=== PATIENT | female | born 1970 | race Caucasian/White ===

== ENCOUNTER 2018-03-28 14:47 | Emergency (ER) | payer OTHER ==
[2018-03-28 15:11] VITALS: BMI 23.6
--- NOTE | 2018-03-28 16:08 | PDOC ---
Attending Attestation - Resident Resident Name: Campbell Pierson - ED Attending Attestation I have performed the following: I have examined & evaluated the patient, The case was reviewed & discussed with the resident, I agree w/resident's findings & plan, Exceptions are as noted - Physicial Exam PE: 03/28/18 17:42 Abd: soft nontender, no cva tenderness : apprx 2x3cm mass on R posterior vaginal introitus (cw bartholins cyst) - Medical Decision Making 03/28/18 17:42 03/28/18 16:09 47y F presnts with worsening pain in the pelvic region endorses fever subjectively denies n/v, +amy when walking, sitting, and with urinating on exam pt has a large mass onthe R posterior vaignal area c/w barthlins cyst bartholins cyst drained and alex ring placed under my direct supervision by dr. Pierson will have pt fu with lacing cutter <Jules Henderson - Last Filed: 03/28/18 17:43> - HPI HPI: 03/28/18 17:54 47y F with a hx of bipolar and bartholin cysts around her body who presents to the emergency department for evaluation of worsening pelvic pain and growing mass in vagina since Wednesday. She reports associated symptoms of subjective fevers, chills, and difficulty with ambulation secondary to pain. Endorses having a mass there in the past but was other sharma asymptmatic so was never formally treated. Denies nausea and vomiting. She reports dysuria, describing it as a throbbing pain. Denies vaginal discharge, bleeding, frequency, abdominal pain, constipation/diarrhea. - Medical Decision Making Documentation prepared by Victor Manuel Whittington, acting as medical physics professor for Jules Henderson MD. <Victor Manuel Whittington - Last Filed: 03/28/18 17:55>
--- NOTE | 2018-03-28 17:08 | PDOC ---
History of Present Illness - General Chief Complaint: Pain Stated Complaint: SICK Time Seen by Provider: 03/28/18 15:32 History Source: Patient Exam Limitations: No Limitations - History of Present Illness Initial Comments: 03/28/18 17:04 Patient is 47F with history of bipolar, bartholin cysts here today complaining of a mass in her vagina that started several days ago. Complains of associated subjective fevers and chills. Denies nausea, vomiting. Denies vaginal discharge , states that it is difficult to urinate because of the mass. Denies abdominal pain. Denies constipation/diarrhea. Patient states that she is concerned that she has a tumor. Past History - Past Medical History Allergies/Adverse Reactions: Allergies Allergy/AdvReac Type Severity Reaction Status Date / Time No Known Allergies Allergy Verified 03/28/18 15:08 Home Medications: Ambulatory Orders Amitriptyline HCl [Elavil -] 50 mg PO BID 03/28/18 Clonazepam [Klonopin] 1 mg PO HS 03/28/18 Cancer: Yes COPD: No Psychiatric Problems: Yes - Suicide/Smoking/Psychosocial Hx Smoking History: Current every day smoker Information on smoking cessation initiated: No Review of Systems - Review of Systems Comments:: 03/28/18 17:06 GENERAL/CONSTITUTIONAL: No fever or chills. No weakness. HEAD, EYES, EARS, NOSE AND THROAT: No change in vision. No sore throat. CARDIOVASCULAR: No chest pain or shortness of breath RESPIRATORY: No cough, wheezing, or hemoptysis. GASTROINTESTINAL: No nausea, vomiting, diarrhea or constipation. GENITOURINARY: No dysuria, frequency. MUSCULOSKELETAL: No joint or muscle swelling or pain. No neck or back pain. SKIN: No rash NEUROLOGIC: No headache, vertigo, loss of consciousness, or change in strength/ sensation. ALLERGIC/IMMUNOLOGIC: No hives or skin allergy. *Physical Exam - Vital Signs Last Vital Signs Temp Pulse Resp BP Pulse Ox 97.7 F 110 H 20 110/84 99 03/28/18 15:09 03/28/18 15:09 03/28/18 15:09 03/28/18 15:09 03/28/18 15:09 - Physical Exam Comments: 03/28/18 17:07 GENERAL: Awake, alert, and fully oriented, in no acute distress PELVIC: R sided bartholin cyst, no cmt, no adnexal tenderness HEAD: No signs of trauma, normocephalic, atraumatic EYES: PERRLA, EOMI, sclera anicteric, conjunctiva clear ENT: Auricles normal inspection, hearing grossly normal, nares patent, oropharynx clear without exudates. Moist mucosa NECK: Normal ROM, supple, no lymphadenopathy, JVD, or masses LUNGS: No distress, speaks full sentences, clear to auscultation bilaterally HEART: Regular rate and rhythm, normal S1 and S2, no murmurs, rubs or gallops, peripheral pulses normal and equal bilaterally. ABDOMEN: Soft, nontender, normoactive bowel sounds. No guarding, no rebound. No masses EXTREMITIES: Normal inspection, Normal range of motion, no edema. No clubbing or cyanosis. NEUROLOGICAL: Cranial nerves II through XII grossly intact. Normal speech, no focal sensorimotor deficits SKIN: Warm, Dry, normal turgor, no rashes or lesions noted. Moderate Sedation - Procedure Monitoring Vital Signs: Procedure Monitoring Vital Signs Temperature 97.7 F 03/28/18 15:09 Pulse Rate 110 H 03/28/18 15:09 Respiratory Rate 20 03/28/18 15:09 Blood Pressure 110/84 03/28/18 15:09 O2 Sat by Pulse Oximetry (%) 99 03/28/18 15:09 Procedures - Incision and Drainage I&D Site: Right: Other (bartholin cyst) Betadine cleansed: Yes Anesthesia: 1% Lidocaine Volume(ml): 5 Blade Size: 11 Attempts: 2 Plain Packing: No (alex ring) Complications: none Progress: 03/28/18 17:58 Tolerated without complication Medical Decision Making - Medical Decision Making 03/28/18 17:58 Patient is 47F with bartholin cyst. Drained, alex ring placed. Given instructions to follow up with OBGYN. Discharged home with return precautions. *DC/Admit/Observation/Transfer Diagnosis at time of Disposition: Bartholin cyst - Discharge Dispostion Disposition: HOME Condition at time of disposition: Good Decision to Admit order: No - Referrals Referrals: Angie Paez [Primary Care Provider] - Sukumar Ramirez MD [Staff Physician] - - Patient Instructions Printed Discharge Instructions: DI for Bartholin Gland Cyst Additional Instructions: Please call the OBGYN below for further follow up. Please return if you have any new, worsening or concerning symptoms, especially fever and increasing pain. - Post Discharge Activity
[2018-03-28 18:05] VITALS: BP 124/78; PULSE 74; TEMP 98.4
== END 2018-03-28 18:05 | disposition home or self-care (01) ==
LOC: JER 14:47
PROC: 0U9L00Z Drainage of Vestibular Gland with Drainage Device, Open Approach (ICD-10-PCS; principal; 2018-03-28)
DX: N75.0 Cyst of Bartholin's gland (principal)
CPT/HCPCS: 56420; 99282-25

== ENCOUNTER 2023-03-21 01:57 | Emergency (ER) | payer OTHER ==
[2023-03-21 02:07] VITALS: BP 112/76; PULSE 84; RESP 18; TEMP 98.1; BMI 29.5
[2023-03-21] MEDS: ALBUTEROL SO4 2.5/IPRATROPIUM 0.5 INH SOL 3 ML VIAL.NEB. NEB SCH ×4 (03:29→04:13)
== END 2023-03-21 05:30 | disposition home or self-care (01) ==
LOC: JER 01:57
PROC: 3E0F7GC Introduction of Other Therapeutic Substance into Respiratory Tract, Via Natural or Artificial Opening (ICD-10-PCS; principal; 2023-03-21)
DX: R21 Rash and other nonspecific skin eruption (principal); J44.9 Chronic obstructive pulmonary disease, unspecified; R07.9 Chest pain, unspecified
CPT/HCPCS: 99283-25

== ENCOUNTER 2023-11-10 05:21 | Emergency (ER) | payer OTHER ==
[2023-11-10 05:35] VITALS: TEMP 97.4; BMI 23.3
[2023-11-10] MEDS ORDERED: MORPHINE SULFATE 2 MG/ML SYRINGE ONE ×2 (06:04→06:37)
[2023-11-10] MEDS: morphine CARPU-JECT 2 MG/1 ML DISP.SYRIN IVPUSH ONE ×2 (06:19→06:47)
[2023-11-10 06:31] LABS: BASO % 0.8 % (0-2.0); EOS % 1.7 % (0-4.5); HEMATOCRIT 42.5 % (32.4-45.2); HEMOGLOBIN 14.3 GM/dL (10.7-15.3); LYMPH % 29.4 % (8-40); MCH 30.7 pg (25.7-33.7); MCHC 33.6 g/dl (32.0-36.0); MEAN CELL VOLUME 91.5 fl (80-96); MEAN PLT VOLUME 7.4 fl (7.5-11.1); MONO % 7.6 % (3.8-10.2); NEUT % 60.5 % (42.8-82.8); PLATELET COUNT 263 10^3/uL (134-434); RBC 4.65 M/mm3 (3.60-5.2); RDW 12.8 % (11.6-15.6); WHITE BLOOD COUNT 10.2 K/mm3 (4.0-10.0)
[2023-11-10 06:43] LABS: PH,URINE 5.5 (5.0-8.0); URINE APPEARANCE TURBID; URINE BILIRUBIN NEGATIVE (NEGATIVE); URINE COLOR DK YELLOW; URINE GLUCOSE (UA) NEGATIVE (NEGATIVE); URINE KETONE NEGATIVE (NEGATIVE); URINE LEUK ESTERASE 2+ (NEGATIVE); URINE NITRITE NEGATIVE (NEGATIVE); URINE PROTEIN 3+ (NEGATIVE)
[2023-11-10] MEDS: morphine CARPU-JECT 4 MG/1 ML DISP.SYRIN IVPUSH ONE (06:47)
[2023-11-10 06:50] LABS: POTASSIUM 4.1 mmol/L (3.5-5.1)
[2023-11-10 06:52] LABS: CALCIUM 9.9 mg/dL (8.5-10.1)
[2023-11-10 06:53] LABS: ALBUMIN 3.9 g/dl (3.4-5.0); BLOOD UREA NITROGEN 19.6 mg/dL (7-18)
[2023-11-10 06:55] LABS: CREATININE 0.8 mg/dL (0.55-1.3)
[2023-11-10 06:57] LABS: BILIRUBIN,TOTAL 0.3 mg/dL (0.2-1); TOT PROT 7.7 g/dl (6.4-8.2)
[2023-11-10] MEDS ORDERED: KETOROLAC TROMETHAMINE 15 MG/ML VIAL ONE (07:00)
[2023-11-10] MEDS: KETOROLAC TROMETHAMINE 15 MG/ML VIAL IVPUSH ONE (07:04)
[2023-11-10] MEDS: SODIUM CHLORIDE 0.9% 500 ML INFUS.BAG IV ONE (07:11)
[2023-11-10 08:00] VITALS: BP 108/91; PULSE 79; RESP 22
[2023-11-10] MEDS ORDERED: PHENAZOPYRIDINE HCL 100 MG TABLET (FP) ONE (09:32)
[2023-11-10] MEDS: PHENAZOPYRIDINE HCL 100 MG TABLET (FP) PO ONE (09:37)
[2023-11-10] MEDS: CIPROFLOXACIN 500 MG TABLET (RESTRICTED TO ID) PO ONE (10:02)
== END 2023-11-10 10:31 | disposition home or self-care (01) ==
LOC: JER 05:21
PROC: 3E0333Z Introduction of Anti-inflammatory into Peripheral Vein, Percutaneous Approach (ICD-10-PCS; principal; 2023-11-10)
PROC: 3E033NZ Introduction of Analgesics, Hypnotics, Sedatives into Peripheral Vein, Percutaneous Approach (ICD-10-PCS; 2023-11-10)
PROC: 3E033NZ Introduction of Analgesics, Hypnotics, Sedatives into Peripheral Vein, Percutaneous Approach (ICD-10-PCS; 2023-11-10)
DX: K59.00 Constipation, unspecified (principal); N30.01 Acute cystitis with hematuria; R10.30 Lower abdominal pain, unspecified; R11.0 Nausea; R39.15 Urgency of urination; R30.0 Dysuria
CPT/HCPCS: 36415; 74177-TC; 76830-TC; 80053; 81003; 85025; 87086; 87186; 99285-25

== ENCOUNTER 2024-03-11 17:42 | Emergency (ER) | payer OTHER ==
[2024-03-11 17:55] VITALS: BP 125/71; PULSE 100; RESP 18; TEMP 97.9; BMI 23.6
[2024-03-11] MEDS ORDERED: ALBUTEROL SO4 0.083% IH SOL 2.5 MG/3 ML VIAL.NEB. NEB ONE (18:30)
[2024-03-11] MEDS: ALBUTEROL SO4 0.083% IH SOL 2.5 MG/3 ML VIAL.NEB. NEB ONE (18:34)
== END 2024-03-11 20:16 | disposition left against medical advice (07) ==
LOC: JER 17:42
PROC: 3E0F7GC Introduction of Other Therapeutic Substance into Respiratory Tract, Via Natural or Artificial Opening (ICD-10-PCS; principal; 2024-03-11)
DX: R05.9 Cough, unspecified (principal); R09.81 Nasal congestion; R06.02 Shortness of breath
CPT/HCPCS: 93005; 93010; 99284-25